=== PATIENT | female | born 1960 | race Caucasian/White ===

== ENCOUNTER → 2016-12-09 | Outpatient (CLI) | payer MEDICARE ==
[~2016-12-09] MED LIST: ALENDRONATE SOD70 MG PO; AMITRIPTYLINE H25 MG PO; CALCIUM + D 6001 TA1 PO; COLESTID1 GM PO; CRESTOR10 MG PO; FLAGYL PO; FOSAMAX PO; LOMOTIL TABLET1 TAB; LORTAB 7.5-5001 TAB PO; MELOXICAM15 MG PO; NEURONTIN PO; OMEPRAZOLE40 MG PO; PRAVASTATIN SOD20 MG PO; PRILOSEC; PRILOSEC20 MG PO; TIZANIDINE HCL4 M1 PO; TYL325 PO; VITAMIN D50000 UNIT PO; VOLTAREN75 MG PO; WELCHOL625 MG PO
--- NOTE | ~2016-12-09 | MY11 ---
[facility] A Service of [facility] RADIOLOGY TEXT RESULTS PATIENT: THERESA BARNEY LOCATION: [facility] : 58 UNIT #: [id number] AGE: [address]: Thomas Alvarenga MD SEX: F ORDER DR: [id number] [id number] O MR#: [id number] Acc #: [id number] NAME: THERESA BARNEY : 1960 SEX: F STUDY DATE/TIME: 12/09/2016 9:47 UNIT: [facility] ROOM: STUDY DESCRIPTION: MY Mammogram Screening Dig Enrique Attending Physician: Thomas Alvarenga M.D. Referring Physician: Thomas Alvarenga M.D. Ordering Physician: Thomas Alvarenga M.D. Primary Care Physician: Thomas Alvarenga M.D. MEDICAL IMAGING REPORT This report is preliminary unless electronic signature is present. EXAM Screening mammogram 12/09 INDICATION 56-year with no personal or family history of breast cancer. No current complaints. FINDINGS Routine digital screening views of both breasts were obtained. Study reviewed with an FDA-approved CAD device. Comparison made with 12/05/2015, 10/14/2014. Breast parenchyma shows scattered fibroglandular densities. There are no masses or suspicious microcalcifications. Benign calcifications in the upper outer right breast are stable. IMPRESSION Benign mammogram. Routine screen in 1 year is recommended. Patient's over the age of 40 are entered into a reminder system with target due date for the next mammogram. BIRADS: 2 Benign Finding. Dictated by... Logan Bergeron Jr., M.D. THIS IS AN ELECTRONICALLY VERIFIED REPORT Logan Bergeron Jr., M.D. at 12/09/2016 12:30 PM RLK/df [facility] A Service of [facility] RADIOLOGY TEXT RESULTS PATIENT: THERESA BARNEY LOCATION: [facility] : 58 UNIT #: [id number] AGE: [address]: Thomas Alvarenga MD SEX: F ORDER DR: TD: 12/09/2016 11:57 JOB #: [id number] MEDICAL IMAGING REPORT
== END | disposition home or self-care (01) ==
LOC: SMAM 09:13
DX: Z12.31 Encounter for screening mammogram for malignant neoplasm of breast (principal)
CPT/HCPCS: G0202